=== PATIENT | female | born 1980 | race African-American/Black ===

== ENCOUNTER → 2017-08-20 | Outpatient (CLI) | payer OTHER ==
[2017-08-20 09:03] LABS: ALANINE AMINOTRANSFERASE 37 U/L (9-52); ALBUMIN 3.3 g/dL (3.5-5.0); ALKALINE PHOSPHATASE 50 U/L (38-126); ANION GAP 7 (5-19); ASPARTATE AMINO TRANSFERASE 38 U/L (14-36); BILIRUBIN,DIRECT 0.2 mg/dL (0.0-0.4); BILIRUBIN,TOTAL 0.2 mg/dL (0.2-1.3); BLOOD UREA NITROGEN 11 mg/dL (7-20); CALCIUM 9.1 mg/dL (8.4-10.2); CARBON DIOXIDE 21 mmol/L (22-30); CHLORIDE 113 mmol/L (98-107); CHOLESTEROL 178.14 mg/dL (0-200); GLUCOSE 85 mg/dL (75-110); POTASSIUM 4.3 mmol/L (3.6-5.0); SODIUM 141.1 mmol/L (137-145); TOTAL PROTEIN 5.4 g/dL (6.3-8.2); TRIGLYCERIDES 110 mg/dL (<150)
[2017-08-20 09:20] LABS: DIRECT LDL 128 mg/dL (<100)
== END ==
LOC: CCC 07:40
DX: J45.998 Other asthma (principal); R73.9 Hyperglycemia, unspecified
CPT/HCPCS: 36415; 80053; 80061; 83036

== ENCOUNTER 2017-12-27 15:13 | Emergency (ER) | payer SELFPAY ==
[2017-12-27] MEDS ORDERED: IPRATROPIUM/ALBUTEROL 0.5-2.5 MG/3 ML AMPUL NEB ONE ×2 (15:27→16:14)
[2017-12-27] MEDS ORDERED: ALBUTEROL SULFATE 0.083% NEB 2.5 MG/3 ML AMPUL NEB ONE (15:27)
--- NOTE | 2017-12-27 15:30 | ER Document Report ---
ED Respiratory Problem - General Chief Complaint: Asthma Exacerbation Stated Complaint: DIFFICULTY BREATHING Time Seen by Provider: 12/27/17 15:29 Mode of Arrival: Ambulatory Information source: Patient TRAVEL OUTSIDE OF THE [place] IN LAST 30 DAYS: No - HPI Onset: Last week Duration: Intermittent episodes Quality of pain: No pain Severity: Moderate Context: Hx asthma, Other - RAN OUT OF MEDS. Cough: Nonproductive Sputum amount: None Associated symptoms: Cough, Short of breath. denies: Ankle/leg swelling, Chills , Fever, Leg/calf/joint pain Similar symptoms previously: Yes - NOT RECENT Recently seen / treated by doctor: No - Related Data Allergies/Adverse Reactions: methylprednisolone sodium succinate [From Solu-Medrol] Allergy (Verified 15:14) Past Medical History - General Information source: Patient - Social History Smoking Status: Current Every Day Smoker Cigarette use (# per day): Yes Chew tobacco use (# tins/day): No Frequency of alcohol use: None Drug Abuse: None Family History: CAD, CVA, Hyperlipidemia, Hypertension, Malignancy Patient has suicidal ideation: No Patient has homicidal ideation: No - Past Medical History Cardiac Medical History: Denies: Hx Atrial Fibrillation, Hx Congestive Heart Failure, Hx Coronary Artery Disease, Hx DVT, Hx Heart Attack, Hx Hypercholesterolemia, Hx Hypertension, Hx Pulmonary Embolism Pulmonary Medical History: Reports: Hx Asthma, Hx Bronchitis Denies: Hx Sleep Apnea Neurological Medical History: Denies: Hx Seizures Endocrine Medical History: Denies: Hx Diabetes Mellitus Type 1, Hx Diabetes Mellitus Type 2, Hx Hyperthyroidism, Hx Hypothyroidism Renal/ Medical History: Reports: Hx Pelvic Inflammatory Disease. Denies: Hx Peritoneal Dialysis GI Medical History: Denies: Hx Cirrhosis, Hx Gastroesophageal Reflux Disease, Hx Hepatitis Musculoskeltal Medical History: Denies Hx Arthritis Skin Medical History: Reports Hx Eczema Psychiatric Medical History: Denies: Hx Depression Infectious Medical History: Denies: Hx Hepatitis Past Surgical History: Reports: Hx Dilation and Curettage, Hx Gynecologic Surgery - D&C, Hx Orthopedic Surgery - left knee, Other - D&C - Immunizations Immunizations up to date: Yes Hx Diphtheria, Pertussis, Tetanus Vaccination: Yes Hx Pneumococcal Vaccination: 06/23/11 Review of Systems - Review of Systems Constitutional: No symptoms reported EENT: No symptoms reported Cardiovascular: No symptoms reported Respiratory: See HPI Gastrointestinal: No symptoms reported Genitourinary: No symptoms reported Female Genitourinary: denies: Musculoskeletal: No symptoms reported Skin: No symptoms reported Neurological/Psychological: No symptoms reported Physical Exam - Vital signs Vitals: Temp Pulse Resp BP Pulse Ox 98.8 F 100 26 H 133/70 H 99 12/27/17 15:16 12/27/17 15:16 12/27/17 15:16 12/27/17 15:16 12/27/17 15:16 Interpretation: Tachycardic, Tachypneic. No: Hypoxic, Febrile - General General appearance: Appears well, Alert In distress: None - HEENT Head: Normocephalic Eyes: Normal Conjunctiva: Normal Ears: Normal Nasal: Normal Mouth/Lips: Normal Mucous membranes: Normal - Respiratory Respiratory status: No respiratory distress, Tachypnea Breath sounds: Wheezing - MODERATE INSP & EXP, ALL STALEY - Cardiovascular Rhythm: Regular Heart sounds: Normal auscultation Murmur: No - Abdominal Inspection: Normal Distension: No distension - Back Back: Normal - Extremities General upper extremity: Normal inspection General lower extremity: Normal inspection. No: Edema - Neurological Neuro grossly intact: Yes Cognition: Normal Orientation: AAOx4 - Psychological Associated symptoms: Normal affect, Normal mood - Skin Skin Temperature: Warm Skin Moisture: Dry Skin Color: Normal Skin Turgor: Elastic Course - Re-evaluation Re-evalutation: 12/27/17 17:29 Patient reports she is feeling much better. Respirations are even and unlabored. There are a few scattered end expiratory wheezes in all lung staley. - Vital Signs Vital signs: Temp Pulse Resp BP Pulse Ox 98.8 F 100 15 139/76 H 96 12/27/17 15:16 12/27/17 15:16 12/27/17 15:39 12/27/17 16:02 12/27/17 16:02 - Diagnostic Test Radiology reviewed: Image reviewed, Reports reviewed Discharge - Discharge Clinical Impression: Asthma exacerbation Qualifiers: Asthma severity: moderate Asthma persistence: unspecified Qualified Code(s): J45.901 - Unspecified asthma with (acute) exacerbation Condition: Stable Disposition: HOME, SELF-CARE Instructions: Asthma ([facility]), Inhaled Bronchodilators ([facility]), Stop Smoking ([facility]), Steroid Medication Additional Instructions: STOP SMOKING. MEDS DIRECTED. FOLLOW UP WITH YOUR PRIMARY CARE PROVIDER NEEDED. RETURN TO E.R. IF PROBLEMS. Prescriptions: Albuterol Sulfate [Proair HFA] 8.5 gm IH Q4HP PRN #2 [email or web address] PRN Reason: For Wheezing Albuterol Sulfate [Albuterol Sulfate 2.5mg/3 mL] 2.5 mg IH Q4 PRN #30 [email or web address] PRN Reason: For Wheezing [facility]: [facility] [NO LOCAL MD] - Follow up as needed
[2017-12-27] MEDS ORDERED: PREDNISONE 20 MG TABLET PO ONE (15:55)
[2017-12-27] MEDS ORDERED: ALBUTEROL SULFATE 0.083% NEB 2.5 MG/3 ML AMPUL NEB SCH (16:29)
--- NOTE | 2017-12-27 16:30 | RADIOLOGY REPORT (SQ) ---
EXAM DESCRIPTION: CHEST 2 VIEWS COMPLETED DATE/TIME: 12/27/2017 4:06 pm REASON FOR STUDY: ASTHMA COMPARISON: 10/31/2014 EXAM PARAMETERS: NUMBER OF VIEWS: two views TECHNIQUE: Digital Frontal and Lateral radiographic views of the chest acquired. RADIATION DOSE: NA LIMITATIONS: none FINDINGS: LUNGS AND PLEURA: No opacities, masses or pneumothorax. No pleural effusion. MEDIASTINUM AND HILAR STRUCTURES: No masses or contour abnormalities. HEART AND VASCULAR STRUCTURES: Heart normal size. No evidence for failure. BONES: No acute findings. HARDWARE: None in the chest. OTHER: No other significant finding. IMPRESSION: NO ACUTE RADIOGRAPHIC FINDING IN THE CHEST. TECHNICAL DOCUMENTATION: JOB ID: [id number] [employer]- All Rights Reserved Reading location - IP/workstation name: [email or web address]
[2017-12-27 17:48] VITALS: BP 130/77
== END 2017-12-27 18:00 | disposition home or self-care (01) ==
LOC: ER 15:13
DX: J45.901 Unspecified asthma with (acute) exacerbation (principal)
CPT/HCPCS: 94640 ×2; 99284; 71046; J7512; J7620